=== PATIENT | female | born 1965 | race American Indian/Alaskan Native ===

== ENCOUNTER 2020-09-30 09:21 | Emergency (ER) | payer OTHER ==
[2020-09-30 10:20] VITALS: BP 166/109
--- NOTE | 2020-09-30 10:54 | Emergency Department Report ---
ED General Adult HPI - General Chief complaint: Dyspnea/Respdistress Stated complaint: LUMP IN BREAST,SOB CHEST PAIN Time Seen by Provider: 09/30/20 10:39 Source: patient Mode of arrival: Ambulatory Limitations: No Limitations - History of Present Illness Initial comments: Patient is a 54-year-old female presents emergency room with complaints of a left breast nodule that began a month ago. She states that she has noticed some swelling to her breast and noticed become painful. She states that she has a family history of breast cancer in her mother and sister. States that she has not had a mammogram in approximately 5 years. She denies any fever, nausea, vomiting, diarrhea. Has a past medical history of hypertension and states that she supposed to be taking Norvasc 10 mg daily but states she has been off of her blood pressure medication. she states she recently moved to [place] and has not yet set up PCP. she has an allergy to lisinopril. - Related Data Previous Rx's Medication Instructions Recorded Last Taken Type amLODIPine 10 mg PO DAILY #30 tab 09/30/20 Unknown Rx Allergies Allergy/AdvReac Type Severity Reaction Status Date / Time lisinopril AdvReac Angioedema Verified 09/30/20 09:27 ED Review of Systems ROS: Stated complaint: LUMP IN BREAST,SOB CHEST PAIN Other details as noted in HPI Comment: All other systems reviewed and negative ED Past Medical Hx - Medications Home Medications: Home Medications Medication Instructions Recorded Confirmed Last Taken Type amLODIPine 10 mg PO DAILY #30 tab 09/30/20 Unknown Rx ED Physical Exam - General Limitations: No Limitations General appearance: alert, in no apparent distress - Head Head exam: Present: atraumatic, normocephalic - Eye Eye exam: Present: normal appearance - ENT ENT exam: Present: mucous membranes moist - Respiratory Respiratory exam: Present: normal lung sounds bilaterally. Absent: respiratory distress, wheezes, rales, rhonchi, stridor, chest wall tenderness, accessory muscle use, decreased breath sounds, prolonged expiratory - Cardiovascular Cardiovascular Exam: Present: regular rate, normal rhythm, normal heart sounds. Absent: systolic murmur, diastolic murmur, rubs, gallop - Neurological Exam Neurological exam: Present: alert, oriented X3 - Psychiatric Psychiatric exam: Present: normal affect, normal mood - Skin Skin exam: Present: warm, dry, other (there is a small palpable 1 cm nodule present to the left breast at the 3 oclock position, no erythema, no increased warmth, no skin changes, no nipple retraction, no peau d'orange) ED Course Vital Signs 09/30/20 09:27 Temperature 98.4 F Pulse Rate 89 Respiratory 20 Rate Blood Pressure 166/109 O2 Sat by Pulse 99 Oximetry ED Medical Decision Making - Medical Decision Making Patient is a 54-year-old female presents emergency room with complaints of a left breast nodule that began a month ago. She states that she has noticed some swelling to her breast and noticed become painful. She states that she has a family history of breast cancer in her mother and sister. States that she has not had a mammogram in approximately 5 years. She denies any fever, nausea, vomiting, diarrhea. Has a past medical history of hypertension and states that she supposed to be taking Norvasc 10 mg daily but states she has been off of her blood pressure medication. she states she recently moved to [place] and has not yet set up PCP. she has an allergy to lisinopril. Vitals with elevated blood pressure, patient has been off of her medication, will refill her blood pressure medication, she is asymptomatic, the up-to-date medical literature does not recommend emergently lowering asymptomatic elevated blood pressure. On exam: there is a small palpable 1 cm nodule present to the left breast at the 3 oclock position, no erythema, no increased warmth, no skin changes, no nipple retraction, no peau d'orange. examination appears consistent with breast nodule. Stressed the importance of outpatient follow-up. Discussed return precautions. Advised patient Please take medication as prescribed. Please follow-up with a primary care doctor or BABYSITTER. You need to have an outpatient mammogram, it is very important that you follow-up given your family history. Return to emergency room for any new or symptoms. Critical care attestation.: If time is entered above; I have spent that time in minutes in the direct care of this critically ill patient, excluding procedure time. ED Disposition Clinical Impression: Breast nodule, Medication refill HTN (hypertension) Qualifiers: Hypertension type: unspecified Qualified Code(s): I10 - Essential (primary) hypertension Disposition: - TO HOME OR SELFCARE Is pt being admited?: No Does the pt Need Aspirin: No Condition: Stable Instructions: Managing Your Hypertension, Hypertension (ED) Additional Instructions: Please take medication as prescribed. Please follow-up with a primary care doct or or BABYSITTER. You need to have an outpatient mammogram, it is very important that you follow-up given your family history. Return to emergency room for any new or symptoms. Prescriptions: amLODIPine 10 mg PO DAILY #30 tab Referrals: PRIMARY CAREMD [Primary Care Provider] - 3-5 Days [facility] [Provider Group] - 3-5 Days STEPHEN CALDERON MD [Staff Physician] - 3-5 Days CHANDA CARMICHAEL MD [Staff Physician] - 3-5 Days Time of Disposition: 11:10 Print Language: TAJIK
== END 2020-09-30 11:28 | disposition home or self-care (01) ==
LOC: ED 09:21
DX: N63.0 Unspecified lump in unspecified breast (principal); I10 Essential (primary) hypertension; Z76.0 Encounter for issue of repeat prescription; Z88.8 Allergy status to other drugs, medicaments and biological substances; Z79.899 Other long term (current) drug therapy
CPT/HCPCS: 99281

== ENCOUNTER 2020-11-06 11:42 | Inpatient (IN) | payer OTHER ==
[2020-11-06] MEDS ORDERED: KETOROLAC 30 MG/1 ML INJ IV ONE (13:31)
[2020-11-06] MEDS ORDERED: SODIUM CHLORIDE 0.9% 1000 ML 1,000 ML IV ONE (13:31)
--- NOTE | 2020-11-06 13:33 | Emergency Department Report ---
ED Abdominal Pain HPI - General Chief Complaint: Abdominal Pain Stated Complaint: severe stomach,nausea vomitng Time Seen by Provider: 11/06/20 13:27 Source: patient Mode of arrival: Wheelchair Limitations: No Limitations - History of Present Illness Initial Comments: This is a 54-year-old -[place] female who presents to the emergency room with diffuse abdominal pain for 4 days. Patient states she is currently on her menstrual cycle and his pain is stable less than usual. Her last bowel movement was 4 to 5 days ago. Patient states she is unable to keep anything on her stomach. She has been vomiting for the past 2 days. Ports pain is stabbing shooting pain. She is currently taking Correctol and Gas-X with no improvement of symptoms. Denies fever, chills, chest pain, vaginal discharge, dysuria, urinary frequency, or urgency. MD Complaint: abdominal pain Onset/Timin -: days(s) Location: diffuse Severity: severe Severity scale (0 -10): 10 Quality: stabbing Consistency: constant Improves With: nothing Worsens With: nothing Associated Symptoms: nausea, vomiting. denies: diarrhea, fever, chills, dysuria, hematuria Treatments Prior to Arrival: antacids - Related Data LMP (females 10-50): this week Previous Rx's Medication Instructions Recorded Last Taken Type amLODIPine 10 mg PO DAILY #30 tab 09/30/20 Unknown Rx Allergies Allergy/AdvReac Type Severity Reaction Status Date / Time lisinopril AdvReac Angioedema Verified 09/30/20 09:27 ED Review of Systems ROS: Stated complaint: severe stomach,nausea vomitng Other details as noted in HPI Constitutional: denies: chills, fever Respiratory: denies: cough, shortness of breath, wheezing Cardiovascular: denies: chest pain, palpitations Gastrointestinal: abdominal pain, vomiting. denies: nausea, diarrhea Musculoskeletal: denies: back pain, joint swelling, arthralgia Skin: denies: rash, lesions Neurological: denies: headache, weakness, paresthesias Psychiatric: denies: anxiety, depression ED Past Medical Hx - Past Medical History Previous Medical History?: Yes Hx Hypertension: Yes - Surgical History Past Surgical History?: No - Medications Home Medications: Home Medications Medication Instructions Recorded Confirmed Last Taken Type amLODIPine 10 mg PO DAILY #30 tab 09/30/20 Unknown Rx ED Physical Exam - General Limitations: No Limitations General appearance: alert, in no apparent distress - Respiratory Respiratory exam: Present: normal lung sounds bilaterally. Absent: respiratory distress - Cardiovascular Cardiovascular Exam: Present: regular rate, normal rhythm. Absent: systolic murmur, diastolic murmur, rubs, gallop - GI/Abdominal GI/Abdominal exam: Present: soft, tenderness (RLQ, LLQ, LUQ), guarding, normal bowel sounds. Absent: distended, rebound, mass, hernia - Back Exam Back exam: Absent: CVA tenderness (R), CVA tenderness (L) - Neurological Exam Neurological exam: Present: alert, oriented X3, normal gait - Psychiatric Psychiatric exam: Present: normal affect, normal mood - Skin Skin exam: Present: warm, dry, intact, normal color. Absent: rash ED Course Vital Signs 11/06/20 12:06 Temperature 97.8 F Pulse Rate 102 H Respiratory 18 Rate Blood Pressure 140/101 [Right] O2 Sat by Pulse 99 Oximetry ED Medical Decision Making - Lab Data Result diagrams: 11/06/20 13:55 11/06/20 13:55 Lab Results 11/06/20 11/06/20 11/06/20 Range/Units 13:55 13:55 13:55 WBC 6.0 (4.5-11.0) K/mm3 RBC 5.07 H (3.65-5.03) M/mm3 Hgb 12.7 (10.1-14.3) gm/dl Hct 39.1 (30.3-42.9) % MCV 77 L (79-97) fl MCH 25 L (28-32) pg MCHC 33 (30-34) % RDW 18.0 H (13.2-15.2) % Plt Count 251 (140-440) K/mm3 Lymph % (Auto) 20.3 (13.4-35.0) % [place] % (Auto) 8.8 H (0.0-7.3) % Eos % (Auto) 0.4 (0.0-4.3) % Baso % (Auto) 0.3 (0.0-1.8) % Lymph # (Auto) 1.2 (1.2-5.4) K/mm3 [place] # (Auto) 0.5 (0.0-0.8) K/mm3 Eos # (Auto) 0.0 (0.0-0.4) K/mm3 Baso # (Auto) 0.0 (0.0-0.1) K/mm3 Seg Neutrophils % 70.2 H (40.0-70.0) % Seg Neutrophils # 4.2 (1.8-7.7) K/mm3 Sodium 138 (137-145) mmol/L Potassium 4.0 (3.6-5.0) mmol/L Chloride 99.0 (98-107) mmol/L Carbon Dioxide 26 (22-30) mmol/L Anion Gap 17 mmol/L BUN 26 H (7-17) mg/dL Creatinine 1.5 H (0.6-1.2) mg/dL Estimated GFR 44 ml/min BUN/Creatinine Ratio 17 % Glucose 105 H (65-100) mg/dL Calcium 9.8 (8.4-10.2) mg/dL Total Bilirubin 0.80 (0.1-1.2) mg/dL AST 11 (5-40) units/L ALT 9 (7-56) units/L Alkaline Phosphatase 68 (35-129) units/L Total Protein 8.6 H (6.3-8.2) g/dL Albumin 4.1 (3.9-5) g/dL Albumin/Globulin Ratio 0.9 % Lipase 22 (13-60) units/L Vital Signs 11/06/20 12:06 Temperature 97.8 F Pulse Rate 102 H Respiratory 18 Rate Blood Pressure 140/101 [Right] O2 Sat by Pulse 99 Oximetry - Radiology Data Radiology results: report reviewed CT ABDOMEN AND PELVIS WITH CONTRAST HISTORY: diffuse abdominal pain OMNI 300 100 ML COMPARISON: None TECHNIQUE: Routine abdominal and pelvic CT exam performed following intravenous contrast administration.. All CT scans at this location are performed using CT dose reduction for ALARA by means of automated exposure control. FINDINGS: CT ABDOMEN: Lung Bases: No significant abnormality. Liver: No significant abnormality. Biliary: No significant abnormality. Spleen: No significant abnormality. Unenlarged. Pancreas: No significant abnormality. Adrenals: No significant abnormality. Kidneys: No significant abnormality. Lymphatics: No lymphadenopathy. Vasculature: Atherosclerotic but nonaneurysmal abdominal aorta. Bowel/Peritoneum: There is diffuse small bowel distention with transition to nondistended bowel in the midline lower abdomen. There is no free air. There is a small amount of free fluid layering in the pelvis. CT PELVIC: : No significant abnormality. Lymphatics: No lymphadenopathy. Osseous Structures: No aggressive appearing osseous lesions. Additional Findings: None IMPRESSION: 1. Findings suggesting mild to moderate small bowel obstruction with transition point in the midline lower abdomen. No free air identified. Small amount free fluid in the pe lvis without focal well-defined fluid collection. Signer Name: Easton Jules MD Signed: 11/06/2020 3:01 PM Workstation Name: [id number] - Medical Decision Making This is a 54 y.o. female that presents with diffuse abdominal pain for 4 days. Vitals stable. Obtained labs and CT of abdomen with contrast. Given analgesics and IV fluids while in ER. CT findings of SBO into midline lower abdomen. Consulting attending Dr. Chase who suggest admission. Consulted surgery Dr. Martinez who agreed to admit to surgery. NG will be placed. Hospitalist notified. Critical Care Time: Yes Critical care time in (mins) excluding proc time.: 30 Critical care attestation.: If time is entered above; I have spent that time in minutes in the direct care of this critically ill patient, excluding procedure time. ED Disposition Clinical Impression: Small bowel obstruction Abdominal pain Qualifiers: Abdominal location: lower abdomen, unspecified Qualified Code(s): R10.30 - Lower abdominal pain, unspecified Disposition: 09 ADMITTED INPATIENT Is pt being admited?: Yes Condition: Stable Instructions: Abdominal Pain (ED) Referrals: PRIMARY CARE, [Primary Care Provider] - 3-5 Days
[2020-11-06 14:28] LABS: Albumin 4.1 g/dL (3.9-5); Calcium 9.8 mg/dL (8.4-10.2)
[2020-11-06 14:33] LABS: Basophils % (Auto) 0.3 % (0.0-1.8); Eosinophils % (Auto) 0.4 % (0.0-4.3); Hematocrit 39.1 % (30.3-42.9); Hemoglobin 12.7 gm/dl (10.1-14.3); Lymphocytes # (Auto) 1.2 K/mm3 (1.2-5.4); Lymphocytes % (Auto) 20.3 % (13.4-35.0); Mean Corpuscular HGB Conc 33 % (30-34); Mean Corpuscular Volume 77 fl (79-97); Monocytes # (Auto) 0.5 K/mm3 (0.0-0.8); Monocytes % (Auto) 8.8 % (0.0-7.3); Platelet Count 251 K/mm3 (140-440); Red Blood Count 5.07 M/mm3 (3.65-5.03)
--- NOTE | 2020-11-06 15:06 | Cat Scan Report ---
CT ABDOMEN AND PELVIS WITH CONTRAST HISTORY: diffuse abdominal pain OMNI 300 100 ML COMPARISON: None TECHNIQUE: Routine abdominal and pelvic CT exam performed following intravenous contrast administrat ion.. All CT scans at this location are performed using CT dose reduction for ALARA by means of autom ated exposure control. FINDINGS: CT ABDOMEN: Lung Bases: No significant abnormality. Liver: No significant abnormality. Biliary: No significant abnormality. Spleen: No significant abnormality. Unenlarged. Pancreas: No significant abnormality. Adrenals: No significant abnormality. Kidneys: No significant abnormality. Lymphatics: No lymphadenopathy. Vasculature: Atherosclerotic but nonaneurysmal abdominal aorta. Bowel/Peritoneum: There is diffuse small bowel distention with transition to nondistended bowel in th e midline lower abdomen. There is no free air. There is a small amount of free fluid layering in the pelvis. CT PELVIC: : No significant abnormality. Lymphatics: No lymphadenopathy. Osseous Structures: No aggressive appearing osseous lesions. Additional Findings: None IMPRESSION: 1. Findings suggesting mild to moderate small bowel obstruction with transition point in the midline lower abdomen. No free air identified. Small amount free fluid in the pelvis without focal well-defin ed fluid collection. Signer Name: Easton Jules MD Signed: 11/06/2020 3:01 PM Workstation Name: [id number]
--- NOTE | 2020-11-06 16:10 | History and Physical Report ---
History of Present Illness Date of examination: 11/06/20 Date of admission: 11/06/20 Chief complaint: Abdominal pain History of present illness: This is a 54-year-old -[place]ong[place] female who presents to the emergency room with diffuse abdominal pain for 4 days. Patient states she is currently on her menstrual cycle and his pain is stable less than usual. Her last bowel movement was 4 to 5 days ago. Patient states she is unable to keep anything on her stomach. She has been vomiting for the past 2 days. Ports pain is stabbing shooting pain. She is currently taking Correctol and Gas-X with no improvement of symptoms. Denies fever, chills, chest pain, vaginal discharge, dysuria, urinary frequency, or urgency. Medications and Allergies Allergies Allergy/AdvReac Type Severity Reaction Status Date / Time lisinopril AdvReac Angioedema Verified 09/30/20 09:27 Home Medications Medication Instructions Recorded Confirmed Last Taken Type amLODIPine 10 mg PO DAILY #30 tab 09/30/20 Unknown Rx Exam - Constitutional Vitals: Temp Pulse Resp BP Pulse Ox 97.8 F 102 H 18 140/101 99 11/06/20 12:06 11/06/20 12:06 11/06/20 12:06 11/06/20 12:06 11/06/20 12:06 Results - Labs CBC & Chem 7: 11/06/20 13:55 11/06/20 13:55 Labs: Abnormal lab results 11/06/20 11/06/20 Range/Units 13:55 13:55 RBC 5.07 H (3.65-5.03) M/mm3 MCV 77 L (79-97) fl MCH 25 L (28-32) pg RDW 18.0 H (13.2-15.2) % [place] % (Auto) 8.8 H (0.0-7.3) % Seg Neutrophils % 70.2 H (40.0-70.0) % BUN 26 H (7-17) mg/dL Creatinine 1.5 H (0.6-1.2) mg/dL Glucose 105 H (65-100) mg/dL Total Protein 8.6 H (6.3-8.2) g/dL Assessment and Plan Small bowel obstruction MARINA, likely vasomotor nephropathy CT abd/pelvis: 1. Findings suggesting mild to moderate small bowel obstruction with transition point in the midline lower abdomen. No free air identified. Small amount free fluid in the pelvis without focal well-defined fluid collection.
[2020-11-06] MEDS ORDERED: D5W/0.9% NACL 1,000 ML IV SCH (17:00)
[2020-11-06] MEDS ORDERED: ACETAMINOPHEN 325 MG TAB PO PRN (17:40)
[2020-11-06] MEDS ORDERED: hydrALAZINE 20 MG/1 ML INJ IV PRN (17:40)
[2020-11-06] MEDS: MORPHINE 2 MG/1 ML INJ IV PRN (18:42)
[2020-11-06] MEDS: ONDANSETRON 4 MG/2 ML INJ IV PRN (18:42)
[2020-11-06] MEDS: cefTRIAXone/NS 1 GM/50 ML 1 GM/50 ML BAG IV SCH (22:55)
[2020-11-06] MEDS: HEPARIN 5,000 UNIT/1 ML VIAL SUB-Q SCH (22:55)
[2020-11-07] MEDS: MORPHINE 2 MG/1 ML INJ IV PRN ×5 (00:16→18:41)
[2020-11-07 03:47] LABS: Basophils % (Auto) 0.5 % (0.0-1.8); Eosinophils # (Auto) 0.1 K/mm3 (0.0-0.4); Hematocrit 34.6 % (30.3-42.9); Hemoglobin 11.5 gm/dl (10.1-14.3); Lymphocytes % (Auto) 15.5 % (13.4-35.0); Mean Corpuscular HGB Conc 33 % (30-34); Mean Corpuscular Volume 76 fl (79-97); Monocytes # (Auto) 0.6 K/mm3 (0.0-0.8); Monocytes % (Auto) 10.1 % (0.0-7.3); Platelet Count 223 K/mm3 (140-440); Red Blood Count 4.55 M/mm3 (3.65-5.03); Red Cell Distribution Width 17.6 % (13.2-15.2)
[2020-11-07 03:56] LABS: INR 0.97 (0.87-1.13)
[2020-11-07 03:58] LABS: BUN/Creatinine Ratio 24; Blood Urea Nitrogen 26 mg/dL (7-17); Calcium 8.5 mg/dL (8.4-10.2); Hemolysis Index 0
[2020-11-07] MEDS: ONDANSETRON 4 MG/2 ML INJ IV PRN (05:42)
[2020-11-07] MEDS: HEPARIN 5,000 UNIT/1 ML VIAL SUB-Q SCH ×3 (06:27→22:06)
[2020-11-07] MEDS ORDERED: LIDOCAINE JELLY (2%) 5 ML TOPICAL ONE (09:04)
[2020-11-07] MEDS ORDERED: LIDOCAINE JELLY (2%) 5 ML TOPICAL TP ONE (09:24)
--- NOTE | 2020-11-07 10:47 | XRay Report ---
PROCEDURE: ABDOMEN FLAT AND UPRIGHT WITH SINGLE VIEW CHEST HISTORY: Abdominal distention, small bowel obstruction COMPARISON: 11/06/2020 TECHNIQUE: Supine and upright abdominal as well as single view chest radiographs obtained. FINDINGS: Lungs: The lungs are clear. The lung volumes are normal. Pleural Effusion: No evidence of a pleural effusion is seen. Pneumothorax: No evidence of pneumothorax is seen. Cardiac: The heart size is normal. Mediastinal silhouette: The mediastinal silhouette is normal. Hilar regions: The hilar regions are normal in appearance. Pulmonary vascularity: The pulmonary vascularity is normal in appearance. Trachea: The trachea is midline. Skeletal structures: The skeletal structures are normal in appearance. Support hardware: Gastric tube with tip overlying the expected location of the mid stomach. Bowel: Persistent gas distended loops of small bowel measuring up to 3.1 cm. The appearance is not si gnificantly changed from most recent CT when accounting for differences in modality. No definite free intraperitoneal gas. IMPRESSION: Persistent gas distended loops of small bowel consistent with known small bowel obstruction. Overall, the appearance is not significantly changed from recent CT. Gastric tube with tip overlying the expected location of the mid stomach. Signer Name: Brigido Pa MD Signed: 11/07/2020 10:42 AM Workstation Name: [id number]
[2020-11-07] MEDS ORDERED: HYDROmorphone 1 MG/1 ML INJ ONE (11:08)
[2020-11-07] MEDS ORDERED: HYDROmorphone 1 MG/1 ML INJ IV ONE (11:13)
--- NOTE | 2020-11-07 11:26 | Consultation ---
History of Present Illness Consult date: 11/07/20 Reason for consult: abdominal pain Chief complaint: abd pain - History of present illness History of present illness: 54-year-old female with a past surgical history of excision of ovarian cyst via Pfannenstiel incision 30 years ago who presents to the emergency room with 4 days of sudden onset lower abdominal pain. The patient states she has never had pain like this before. The pain is sharp and radiates to the mid abdomen. No alleviating or exacerbating factors at home. Pain medication here in the emergency room did help with the pain. No fevers or chills. Positive nausea and nonbilious/nonbloody emesis. Has not had a bowel movement in 4 days. States she has not eaten in the last 4 to 5 days. She is asking for something to drink. NG tube was ordered yesterday afternoon however does was not placed until 9am today. Past History Past Medical History: hypertension Past Surgical History: Other (Ovarian cystectomy via Pfannenstiel incision) Social history: no significant social history Family history: no significant family history Medications and Allergies Allergies Allergy/AdvReac Type Severity Reaction Status Date / Time lisinopril AdvReac Angioedema Verified 09/30/20 09:27 Home Medications Medication Instructions Recorded Confirmed Last Taken Type amLODIPine 10 mg PO DAILY #30 tab 09/30/20 Unknown Rx Active Meds: Active Medications Acetaminophen (Acetaminophen 325 Mg Tab) 650 mg PO Q4H PRN PRN Reason: Pain MILD(1-3)/Fever >100.5/[place] Heparin Sodium (Porcine) (Heparin 5,000 Unit/1 Ml Vial) 5,000 unit SUB-Q Q8HR SUDHAKAR Last Admin: 11/07/20 06:27 Dose: 5,000 unit Documented by: Hydralazine HCl (Hydralazine 20 Mg/1 Ml Inj) 5 mg IV Q30MIN PRN PRN Reason: Hypertension Dextrose/Sodium Chloride (D5ns) 1,000 mls @ 100 mls/hr IV DIRECT SUDHAKAR Ceftriaxone Sodium (Rocephin/Ns 1 Gm/50 Ml) 1 gm in 50 mls @ 100 mls/hr IV Q24H SUDHAKAR; Protocol Last Admin: 11/06/20 22:55 Dose: 100 mls/hr Documented by: Morphine Sulfate (Morphine 2 Mg/1 Ml Inj) 2 mg IV Q4H PRN PRN Reason: Pain, Moderate (4-6) Last Admin: 11/07/20 10:27 Dose: 2 mg Documented by: Ondansetron HCl (Ondansetron 4 Mg/2 Ml Inj) 4 mg IV Q8H PRN PRN Reason: N/V unrelieved by Reglan Last Admin: 11/07/20 05:42 Dose: 4 mg Documented by: Sodium Chloride (Sodium Chloride 0.9% 10 Ml Flush Syringe) 10 ml IV BID SUDHAKAR Last Admin: 11/07/20 09:35 Dose: 10 ml Documented by: Sodium Chloride (Sodium Chloride 0.9% 10 Ml Flush Syringe) 10 ml IV PRN PRN PRN Reason: LINE FLUSH Review of Systems All systems: negative (1 point ROS performed and negative except for that listed in HPI) Exam Vital Signs Temp Pulse Resp BP Pulse Ox 97.8 F 102 H 18 140/101 99 11/06/20 12:06 11/06/20 12:06 11/06/20 12:06 11/06/20 12:06 11/06/20 12:06 Narrative exam: Gen.: Awake, alert, oriented x3. No apparent distress ENT: NG tube in place, no output, not connected to suction appropriately. Once connected to suction immediate drainage of 800 cc of clear aspirate with semisolid green sediment. Trachea midline. No lymphadenopathy. No scleral icterus or conjunctival pallor CV: S1, S2 present Respiratory: No audible wheezes Abdomen: Soft, mildly distended, lower abdominal tenderness to palpation. Well- healed Pfannenstiel surgical scar. No rebound, rigidity, guarding Extremities: No clubbing, cyanosis, edema Results - Labs 11/07/20 03:06 11/07/20 03:06 Abnormal lab results 11/06/20 11/06/20 11/07/20 Range/Units 13:55 13:55 03:06 RBC 5.07 H (3.65-5.03) M/mm3 MCV 77 L 76 L (79-97) fl MCH 25 L 25 L (28-32) pg RDW 18.0 H 17.6 H (13.2-15.2) % [place] % (Auto) 8.8 H 10.1 H (0.0-7.3) % Lymph # (Auto) 1.0 L (1.2-5.4) K/mm3 Seg Neutrophils % 70.2 H 72.9 H (40.0-70.0) % BUN 26 H (7-17) mg/dL Creatinine 1.5 H (0.6-1.2) mg/dL Glucose 105 H (65-100) mg/dL Total Protein 8.6 H (6.3-8.2) g/dL 11/07/20 Range/Units 03:06 RBC (3.65-5.03) M/mm3 MCV (79-97) fl MCH (28-32) pg RDW (13.2-15.2) % [place] % (Auto) (0.0-7.3) % Lymph # (Auto) (1.2-5.4) K/mm3 Seg Neutrophils % (40.0-70.0) % BUN 26 H (7-17) mg/dL Creatinine (0.6-1.2) mg/dL Glucose (65-100) mg/dL Total Protein (6.3-8.2) g/dL Diabetes panel 11/06/20 11/07/20 Range/Units 13:55 03:06 Sodium 138 137 (137-145) mmol/L Potassium 4.0 3.7 (3.6-5.0) mmol/L Chloride 99.0 101.4 (98-107) mmol/L Carbon Dioxide 26 26 (22-30) mmol/L BUN 26 H 26 H (7-17) mg/dL Creatinine 1.5 H 1.1 (0.6-1.2) mg/dL Glucose 105 H 91 (65-100) mg/dL Calcium 9.8 8.5 (8.4-10.2) mg/dL AST 11 (5-40) units/L ALT 9 (7-56) units/L Alkaline Phosphatase 68 (35-129) units/L Total Protein 8.6 H (6.3-8.2) g/dL Albumin 4.1 (3.9-5) g/dL Calcium panel 11/06/20 11/07/20 Range/Units 13:55 03:06 Calcium 9.8 8.5 (8.4-10.2) mg/dL Albumin 4.1 (3.9-5) g/dL Pituitary panel 11/06/20 11/07/20 Range/Units 13:55 03:06 Sodium 138 137 (137-145) mmol/L Potassium 4.0 3.7 (3.6-5.0) mmol/L Chloride 99.0 101.4 (98-107) mmol/L Carbon Dioxide 26 26 (22-30) mmol/L BUN 26 H 26 H (7-17) mg/dL Creatinine 1.5 H 1.1 (0.6-1.2) mg/dL Glucose 105 H 91 (65-100) mg/dL Calcium 9.8 8.5 (8.4-10.2) mg/dL Adrenal panel 11/06/20 11/07/20 Range/Units 13:55 03:06 Sodium 138 137 (137-145) mmol/L Potassium 4.0 3.7 (3.6-5.0) mmol/L Chloride 99.0 101.4 (98-107) mmol/L Carbon Dioxide 26 26 (22-30) mmol/L BUN 26 H 26 H (7-17) mg/dL Creatinine 1.5 H 1.1 (0.6-1.2) mg/dL Glucose 105 H 91 (65-100) mg/dL Calcium 9.8 8.5 (8.4-10.2) mg/dL Total Bilirubin 0.80 (0.1-1.2) mg/dL AST 11 (5-40) units/L ALT 9 (7-56) units/L Alkaline Phosphatase 68 (35-129) units/L Total Protein 8.6 H (6.3-8.2) g/dL Albumin 4.1 (3.9-5) g/dL - Imaging Abdominal x-ray: report reviewed, image reviewed CT scan - abdomen: report reviewed, image reviewed CT scan - pelvis: report reviewed, image reviewed Assessment and Plan 54-year-old female with small bowel obstruction likely secondary to adhesions Pt overall stable. WBC normal. Plan: 1. strict NPO 2. IVF 3. IV pain control 4. prn nausea control 5. NGT to LIWS - was not placed til this am and not connected to suction appropriately. Obs series performed immediately after placement of NGT and no change from CT likely due to fact that patient was not decompressed with NGT overnight. 6. DVT ppx 7. Repeat obs series in am 8. Possible need for surgery discussed with patient if SBO does not resolved with conservative measures as above. She understands. Thank you for this consultation. Please call with any questions or concerns. Evaluation and treatment of this patient was during the time of the national and state emergency arising from COVID19 coronavirus pandemic. Treatment and procedures performed meet the current and available best practice and guidelines for patient during the COVID pandemic.
[2020-11-07] MEDS: D5W/0.9% NACL 1,000 ML IV SCH (12:02)
[2020-11-07] MEDS: PANTOPRAZOLE 40 MG INJ IV SCH (12:02)
--- NOTE | 2020-11-07 14:11 | Progress Note ---
Assessment and Plan Small bowel obstruction MARINA, likely vasomotor nephropathy CT abd/pelvis: 1. Findings suggesting mild to moderate small bowel obstruction with transition point in the midline lower abdomen. No free air identified. Small amount free fluid in the pelvis without focal well-defined fluid collection. Daily clinical course; 11/07/20: Continue NG suction, continue IV fluid, repeat labs Subjective Date of service: 11/07/20 Objective - Constitutional Vitals: Vital Signs - 12hr 11/07/20 11/07/20 02:30 03:00 Pulse Rate 90 89 Respiratory 15 30 H Rate Blood Pressure 132/92 157/103 O2 Sat by Pulse 95 99 Oximetry - Labs CBC & Chem 7: 11/07/20 03:06 11/07/20 03:06 Labs: Abnormal lab results 11/06/20 11/06/20 11/07/20 Range/Units 13:55 13:55 03:06 RBC 5.07 H (3.65-5.03) M/mm3 MCV 77 L 76 L (79-97) fl MCH 25 L 25 L (28-32) pg RDW 18.0 H 17.6 H (13.2-15.2) % [place] % (Auto) 8.8 H 10.1 H (0.0-7.3) % Lymph # (Auto) 1.0 L (1.2-5.4) K/mm3 Seg Neutrophils % 70.2 H 72.9 H (40.0-70.0) % BUN 26 H (7-17) mg/dL Creatinine 1.5 H (0.6-1.2) mg/dL Glucose 105 H (65-100) mg/dL Total Protein 8.6 H (6.3-8.2) g/dL 11/07/20 Range/Units 03:06 RBC (3.65-5.03) M/mm3 MCV (79-97) fl MCH (28-32) pg RDW (13.2-15.2) % [place] % (Auto) (0.0-7.3) % Lymph # (Auto) (1.2-5.4) K/mm3 Seg Neutrophils % (40.0-70.0) % BUN 26 H (7-17) mg/dL Creatinine (0.6-1.2) mg/dL Glucose (65-100) mg/dL Total Protein (6.3-8.2) g/dL
[2020-11-07] MEDS: HYDROmorphone 1 MG/1 ML INJ IV PRN ×2 (15:05→22:19)
[2020-11-07] MEDS: cefTRIAXone/NS 1 GM/50 ML 1 GM/50 ML BAG IV SCH (22:04)
[2020-11-08] MEDS: MORPHINE 2 MG/1 ML INJ IV PRN ×3 (00:44→15:57)
[2020-11-08] MEDS: D5W/0.9% NACL 1,000 ML IV SCH (01:44)
[2020-11-08] MEDS: HYDROmorphone 1 MG/1 ML INJ IV PRN ×3 (01:44→21:07)
[2020-11-08] MEDS: HEPARIN 5,000 UNIT/1 ML VIAL SUB-Q SCH ×3 (06:16→22:44)
[2020-11-08 06:30] LABS: BUN/Creatinine Ratio 27; Blood Urea Nitrogen 24 mg/dL (7-17); Calcium 8.7 mg/dL (8.4-10.2); Hemolysis Index 0
--- NOTE | 2020-11-08 09:29 | XRay Report ---
ABDOMEN 3 VIEW(S) INDICATION / CLINICAL INFORMATION: sbo. COMPARISON: Recent CT and radiographs. FINDINGS: TUBES / LINES: NG tube in satisfactory position. BOWEL GAS PATTERN: Dilated small bowel with air-fluid levels again noted. There is a paucity of colon ic gas. FREE AIR / EXTRALUMINAL GAS: None seen. ADDITIONAL FINDINGS: Lungs are clear. IMPRESSION: 1. Persistent small bowel obstruction. Signer Name: Monty Bonilla MD Signed: 11/08/2020 9:24 AM Workstation Name: [id number]
[2020-11-08] MEDS ORDERED: POTASSIUM CHLORIDE ER 20 MEQ TAB PO ONE (10:36)
[2020-11-08] MEDS: PANTOPRAZOLE 40 MG INJ IV SCH (10:57)
[2020-11-08] MEDS: POTASSIUM CHLORIDE 10 MEQ 10 MEQ/100 ML BAG IV SCH (12:20)
--- NOTE | 2020-11-08 13:18 | Progress Note ---
Assessment and Plan 54-year-old female with small bowel obstruction likely secondary to adhesions Pt overall stable, feeling better. However, NGT output is very high and persistent SBO on Obs series today. NG tube output has not been recorded in [employer] however there are 2 full canisters at patient's bedside. Plan: 1. strict NPO 2. IVF 3. IV pain control 4. prn nausea control 5. NGT to LIWS 6. DVT ppx 7. Recommend OR for dx lap, possible exlap. Discussed with patient and questions answered. Possible need for bowel resection discussed. Will proceed to OR today. Consent obtained. Thank you. Please call with any questions or concerns. Evaluation and treatment of this patient was during the time of the national and state emergency arising from COVID19 coronavirus pandemic. Treatment and procedures performed meet the current and available best practice and guidelines for patient during the COVID pandemic. Subjective Date of service: 11/08/20 Narrative: Patient seen and examined. No acute complaints. States she feels hungry. Her abdominal pain is much better controlled today. No fevers or chills. No bowel movement or flatus. Objective Vital Signs - 12hr 11/08/20 11/08/20 11/08/20 01:44 02:39 04:05 Temperature 98.8 F Pulse Rate 96 H Respiratory 18 18 Rate Blood Pressure 133/100 Blood Pressure [Right] O2 Sat by Pulse 99 99 Oximetry 11/08/20 11/08/20 11/08/20 04:34 06:18 08:32 Temperature 98.7 F Pulse Rate 94 H 82 Respiratory 20 18 Rate Blood Pressure 118/80 Blood Pressure 138/95 [Right] O2 Sat by Pulse 96 96 Oximetry 11/08/20 11:48 Temperature Pulse Rate Respiratory Rate Blood Pressure 120/78 Blood Pressure [Right] O2 Sat by Pulse Oximetry - General physical appearance Narrative Exam: Gen.: Awake, alert, oriented x3. No apparent distress ENT: NG tube with bilious output. Trachea midline. No lymphadenopathy. No scleral icterus or conjunctival pallor CV: S1, S2 present Respiratory: No audible wheezes Abdomen: Soft, nondistended, nontender. No rebound, rigidity, guarding Extremities: No clubbing, cyanosis, edema - Labs 11/07/20 03:06 11/08/20 04:35 Diabetes panel 11/08/20 Range/Units 04:35 Sodium 137 (137-145) mmol/L Potassium 3.3 L (3.6-5.0) mmol/L Chloride 96.3 L (98-107) mmol/L Carbon Dioxide 28 (22-30) mmol/L BUN 24 H (7-17) mg/dL Creatinine 0.9 (0.6-1.2) mg/dL Glucose 108 H (65-100) mg/dL Calcium 8.7 (8.4-10.2) mg/dL Calcium panel 11/08/20 Range/Units 04:35 Calcium 8.7 (8.4-10.2) mg/dL Pituitary panel 11/08/20 Range/Units 04:35 Sodium 137 (137-145) mmol/L Potassium 3.3 L (3.6-5.0) mmol/L Chloride 96.3 L (98-107) mmol/L Carbon Dioxide 28 (22-30) mmol/L BUN 24 H (7-17) mg/dL Creatinine 0.9 (0.6-1.2) mg/dL Glucose 108 H (65-100) mg/dL Calcium 8.7 (8.4-10.2) mg/dL Adrenal panel 11/08/20 Range/Units 04:35 Sodium 137 (137-145) mmol/L Potassium 3.3 L (3.6-5.0) mmol/L Chloride 96.3 L (98-107) mmol/L Carbon Dioxide 28 (22-30) mmol/L BUN 24 H (7-17) mg/dL Creatinine 0.9 (0.6-1.2) mg/dL Glucose 108 H (65-100) mg/dL Calcium 8.7 (8.4-10.2) mg/dL
--- NOTE | 2020-11-08 14:45 | Anesthesia Day of Surgery ---
Anesthesia Day of Surgery - Day of Surgery Patient Examined: Yes Patient H&P Reviewed: Yes Patient is NPO: Yes
--- NOTE | 2020-11-08 14:45 | Anesthesia Consultation ---
Anesthesia Consult and Med Hx Date of service: 11/08/20 - Airway Anesthetic Teeth Evaluation: Edentulous ROM Head & Neck: Adequate Mental/Hyoid Distance: Adequate Mallampati Class: Class II Intubation Access Assessment: Probably Good - Pre-Operative Health Status ASA Pre-Surgery Classification: ASA3 Proposed Anesthetic Plan: General - Pulmonary Hx Smoking: Yes (1/2 pack/day x 30 years) - Cardiovascular System Hx Hypertension: Yes - Gastrointestinal Hx Gastroesophageal Reflux Disease: No (small bowel obstruction) - Other Systems Hx Substance Use: Yes (marijuana, cocaine)
[2020-11-08] MEDS ORDERED: LIDOCAINE (1%) 10 MG/1 ML VIAL 20 ML MDV ONE (15:11)
[2020-11-08] MEDS ORDERED: BUPIVACAINE/PF (0.5%) 5 MG/1 ML 30 ML VIAL INFILTRATI ONE ×3 (15:11→18:10)
--- NOTE | 2020-11-08 15:18 | Progress Note ---
Assessment and Plan Small bowel obstruction MARINA, likely vasomotor nephropathy CT abd/pelvis: 1. Findings suggesting mild to moderate small bowel obstruction with transition point in the midline lower abdomen. No free air identified. Small amount free fluid in the pelvis without focal well-defined fluid collection. Daily clinical course; 11/07/20: Continue NG suction, continue IV fluid, repeat labs 11/08/20; patient remains symptomatic despite of appropriate medical management. Plan for diagnostic laparoscopy today, Subjective Date of service: 11/08/20 Objective - Constitutional Vitals: Vital Signs - 12hr 11/08/20 11/08/20 11/08/20 04:05 04:34 06:18 Temperature 98.8 F Pulse Rate 96 H 94 H Respiratory 18 20 Rate Blood Pressure 133/100 Blood Pressure 138/95 [Right] O2 Sat by Pulse 99 96 Oximetry 11/08/20 11/08/20 08:32 11:48 Temperature 98.7 F Pulse Rate 82 Respiratory 18 Rate Blood Pressure 118/80 120/78 Blood Pressure [Right] O2 Sat by Pulse 96 Oximetry - Labs CBC & Chem 7: 11/07/20 03:06 11/08/20 04:35 Labs: Abnormal lab results 11/08/20 Range/Units 04:35 Potassium 3.3 L (3.6-5.0) mmol/L Chloride 96.3 L (98-107) mmol/L BUN 24 H (7-17) mg/dL Glucose 108 H (65-100) mg/dL
[2020-11-08] MEDS ORDERED: propofoL 200 MG/20 ML VIAL IV ONE (17:23)
[2020-11-08] MEDS ORDERED: SUCCINYLCHOLINE CHLORIDE 200 MG/10 ML INJ MDV ONE (17:23)
[2020-11-08] MEDS ORDERED: fentaNYL 100 MCG/2 ML INJ ONE (17:23)
[2020-11-08] MEDS ORDERED: LIDOCAINE PF 100 MG/5 ML (CARDIAC SYRINGE) IV ONE (17:23)
[2020-11-08] MEDS ORDERED: ONDANSETRON 4 MG/2 ML INJ ONE (17:29)
[2020-11-08] MEDS ORDERED: ROCURONIUM 50 MG/5 ML INJ IV ONE (17:29)
[2020-11-08] MEDS ORDERED: dexAMETHasone 20 MG/5 ML VIAL ONE (17:29)
[2020-11-08] MEDS ORDERED: MIDAZOLAM 2 MG/2 ML INJ ONE (17:43)
[2020-11-08] MEDS ORDERED: KETAMINE/STERILE WATER 50 MG/ML SYRINGE ONE (17:43)
[2020-11-08] MEDS ORDERED: LIDOCAINE (1%) 10 MG/1 ML VIAL 20 ML MDV INFILTRATI ONE ×2 (18:10)
[2020-11-08] MEDS ORDERED: SODIUM CHLORIDE 0.9% IRR 1,500 ML BOTTLE IR ONE ×2 (18:10)
[2020-11-08] MEDS ORDERED: WATER FOR IRRIG STERILE 1,500 ML BOTTLE IR ONE (18:10)
[2020-11-08] MEDS ORDERED: PHENYLEPHRINE/NS 1,000 MCG/10 ML SYRINGE (OR USE) IV ONE (18:53)
[2020-11-08] MEDS ORDERED: HYDROmorphone 1 MG/1 ML INJ IV PRN (18:54)
[2020-11-08] MEDS ORDERED: ONDANSETRON 4 MG/2 ML INJ IV PRN (18:54)
[2020-11-08] MEDS ORDERED: SODIUM CHLORIDE 0.9% IRRIG SOLN 2000 ML IR ONE (19:16)
--- NOTE | 2020-11-08 19:32 | Post Operative Note ---
Pre-op diagnosis: small bowel obstruction Post-op diagnosis: same (high grade small bowel obstruction) Findings: 1. Dense adhesions from omentum to abdominal wall in mid and lower abdomen, small bowel to abdominal wall lower abdomen and pelvis 2. High grade distal small bowel obstruction resulting from adhesions in pelvis involving uterus Procedure: diagnotis laparoscopy, lysis of adhesions Anesthesia: GETA, local Surgeon: DEMETRA DIEGO Emu Farmer: CHRISTIANO LOCK Estimated blood loss: minimal Pathology: none Condition: stable Disposition: PACU
[2020-11-08] MEDS ORDERED: NEOSTIGMINE 10MG/10 ML INJ MDV ONE (19:36)
[2020-11-08] MEDS ORDERED: GLYCOPYRROLATE 0.4 MG/2 ML INJ ONE (19:36)
--- NOTE | 2020-11-08 19:41 | Operative Report ---
Operative Report Operative Report: Date: 11/08/20 19:30 Pre-op diagnosis: small bowel obstruction Post-op diagnosis: high grade small bowel obstruction, internal hernia Findings: 1. Dense adhesions from omentum to abdominal wall in mid and lower abdomen, small bowel to abdominal wall lower abdomen and pelvis 2. High grade distal small bowel obstruction resulting from adhesions in pelvis involving uterus, internal hernia Procedure: diagnotic laparoscopy, lysis of adhesions Anesthesia: ROMEO, local Surgeon: DEMETRA DIEGO Carpet Installer Helper: CHRISTIANO LOCK Estimated blood loss: minimal Pathology: none Condition: stable Disposition: PACU HPI and indication: Patient is a 55-year-old female with a past surgical history of open ovarian cystectomy who presented to the emergency room with complaints of 4 days of severe abdominal pain, nausea and vomiting. She was found to have small bowel obstruction. The patient was managed with an NG tube, n.p.o., IV fluids. However she did not improve clinically or radiographically and continued to have very high NG tube outputs. It was therefore recommended that she undergo diagnostic laparoscopy, possible exploratory laparotomy. All risks, benefits, alternatives to surgery were discussed with the patient questions answered. Consent was obtained. Procedure in detail: Patient was identified in the hospital bed, taken back to the operating room, placed on the operating room table in supine position. After anesthesia was induced, I placed a Mora catheter using sterile technique. The NG tube was removed and replaced with a larger Polish NG tube by anesthesia. The abdomen was then prepped and draped in the usual sterile fashion a timeout performed. Local anesthetic was infiltrated at all skin incision sites. A shirley incision was made in the left upper quadrant at Wood's point through which a Veress needle was inserted. The Veress needle position was confirmed using the saline drop test and the abdomen insufflated to 15 mmHg without incident. A left upper quadrant incision was then made through which a 5 mm Optiview trocar was placed. The abdomen was inspected and there was no underlying injury to any of the abdominal structures. The Veress needle was identified and removed. The abdomen was inspected and there were dense adhesions from the omentum to the anterior abdominal wall in the mid and lower abdomen. It also appeared there were small bowel adhesions to the anterior abdominal wall in the lower abdomen and pelvis area. An additional left lower quadrant 5 mm trocar was placed under direct visualization. I then proceeded to performing lysis of adhesions using a LigaSure. Once enough adhesions were lysed, a 5 mm suprapubic trocar was placed under direct visualization. We then continued lysis of adhesions until we encountered a loop of small bowel adhered to the anterior abdominal wall in the lower midline. The adhesions were very dense and a meticulous lysis of adhesions was performed using EndoShears. Once this loop of small bowel was released, the bowel was ran from the terminal ileum, proximally. An additional right upper quadrant 5 mm addictions counselor assistant trocar was placed under direct visualization. The distal small bowel was decompressed and was ran for short distance until we ran into another dense adhesion. It appeared that the small bowel was traveling into the pelvis in between the right ovary and the uterus. This was almost like an internal hernia created by adhesions. The bowel proximal to this window was extremely dilated. Using blunt dissection a grasper was able to be inserted in between the small bowel and the uterus and the opening spread which allowed for the introduction of the second grasper. This area was gently stretched and the adhesions bluntly dissected which resulted in a immediate release of the small intestine. There was at least 20 cm of distended and fluid-filled small bowel contained within this internal hernia. I then proceeded to run the remainder of the bowel to the ligament of Treitz. There were adhesions from the omentum to the mesentery of the bowel and to the left lateral abdominal wall which were dissected using the LigaSure. The omentum was retracted above the transverse colon and the ligament of Treitz was identified. The bowel was then ran again from the ligament of Treitz to the terminal ileum. The majority of the small bowel was distended and fluid-filled. The distal small bowel was decompressed. A tiny serosal tear was identified in the distal jejunum but no full-thickness injury. The remainder of the bowel appeared viable, healthy. No other potential causes of bowel obstruction were identified. At this point the abdomen was desufflated and all of the ports were removed under direct visualization. All skin incisions were once again infiltrated with local anesthetic. The skin incisions were closed with 4-0 Monocryl subcuticular stitches and skin glue. The patient tolerated the procedure well. At the end of the case all sponge, instrument, sharp counts were correct x2. The patient was awoken from anesthesia, Mora catheter removed, and she was taken to PACU in stable condition
[2020-11-08] MEDS: cefTRIAXone/NS 1 GM/50 ML 1 GM/50 ML BAG IV SCH (22:41)
[2020-11-09] MEDS: HYDROmorphone 1 MG/1 ML INJ IV PRN ×4 (01:54→16:15)
[2020-11-09] MEDS: POTASSIUM CHLORIDE 10 MEQ 10 MEQ/100 ML BAG IV SCH ×7 (03:56→23:10)
[2020-11-09] MEDS: D5W/0.9% NACL 1,000 ML IV SCH (03:56)
[2020-11-09 06:31] LABS: Basophils % (Auto) 0.2 % (0.0-1.8); Hematocrit 29.7 % (30.3-42.9); Hemoglobin 9.6 gm/dl (10.1-14.3); Lymphocytes # (Auto) 0.7 K/mm3 (1.2-5.4); Lymphocytes % (Auto) 13.1 % (13.4-35.0); Mean Corpuscular HGB Conc 32 % (30-34); Mean Corpuscular Volume 77 fl (79-97); Monocytes # (Auto) 0.3 K/mm3 (0.0-0.8); Monocytes % (Auto) 6.6 % (0.0-7.3); Platelet Count 178 K/mm3 (140-440); Red Blood Count 3.88 M/mm3 (3.65-5.03); Red Cell Distribution Width 17.6 % (13.2-15.2)
[2020-11-09] MEDS: HEPARIN 5,000 UNIT/1 ML VIAL SUB-Q SCH ×3 (06:51→21:04)
[2020-11-09 07:06] LABS: BUN/Creatinine Ratio 26; Blood Urea Nitrogen 21 mg/dL (7-17); Calcium 8.2 mg/dL (8.4-10.2); Hemolysis Index 0
[2020-11-09] MEDS: PANTOPRAZOLE 40 MG INJ IV SCH (09:21)
--- NOTE | 2020-11-09 12:44 | Progress Note ---
Assessment and Plan 55 yo F s/p dx lap, YANIRA, POD 1 Plan: 1. NGT to LIWS - likely dc in am and start on clear liquids 2. gentle IVF 3. prn pain control 4. DVT ppx 5. PPI 6. OOB/ambulate 7. ok to have ice chips and sips of water Thank you, please call with questions. Subjective Date of service: 11/09/20 Narrative: Pt seen and examined. Feels much better. +Flatus and BMx3. Feeling hungry. Has been ambulating to the bathroom. No abdominal pain. Objective Vital Signs - 12hr 11/09/20 11/09/20 11/09/20 00:46 01:54 04:00 Temperature Pulse Rate Respiratory 18 17 Rate Respiratory 17 Rate [Abd] Blood Pressure Blood Pressure [Right] O2 Sat by Pulse 98 Oximetry 11/09/20 11/09/20 11/09/20 04:58 06:54 07:24 Temperature 97.8 F Pulse Rate 122 H Respiratory 18 17 17 Rate Respiratory Rate [Abd] Blood Pressure Blood Pressure 118/87 [Right] O2 Sat by Pulse 100 Oximetry 11/09/20 11/09/20 07:39 11:27 Temperature 98.0 F 98.2 F Pulse Rate 84 88 Respiratory 18 18 Rate Respiratory Rate [Abd] Blood Pressure 141/89 165/111 Blood Pressure [Right] O2 Sat by Pulse 98 96 Oximetry - General physical appearance Narrative Exam: Gen: AAOx3. NAD ENT: NGT with dark gastric output CV: S1, S2+ Resp: even and unlabored Abd: soft, NT, ND. Incisions c/d/i Ext: no c/c/e - Labs 11/09/20 04:13 11/09/20 04:13 Diabetes panel 11/09/20 Range/Units 04:13 Sodium 138 (137-145) mmol/L Potassium 3.2 L (3.6-5.0) mmol/L Chloride 100.8 (98-107) mmol/L Carbon Dioxide 24 (22-30) mmol/L BUN 21 H (7-17) mg/dL Creatinine 0.8 (0.6-1.2) mg/dL Glucose 224 H (65-100) mg/dL Calcium 8.2 L (8.4-10.2) mg/dL Calcium panel 11/09/20 Range/Units 04:13 Calcium 8.2 L (8.4-10.2) mg/dL Pituitary panel 11/09/20 Range/Units 04:13 Sodium 138 (137-145) mmol/L Potassium 3.2 L (3.6-5.0) mmol/L Chloride 100.8 (98-107) mmol/L Carbon Dioxide 24 (22-30) mmol/L BUN 21 H (7-17) mg/dL Creatinine 0.8 (0.6-1.2) mg/dL Glucose 224 H (65-100) mg/dL Calcium 8.2 L (8.4-10.2) mg/dL Adrenal panel 11/09/20 Range/Units 04:13 Sodium 138 (137-145) mmol/L Potassium 3.2 L (3.6-5.0) mmol/L Chloride 100.8 (98-107) mmol/L Carbon Dioxide 24 (22-30) mmol/L BUN 21 H (7-17) mg/dL Creatinine 0.8 (0.6-1.2) mg/dL Glucose 224 H (65-100) mg/dL Calcium 8.2 L (8.4-10.2) mg/dL
--- NOTE | 2020-11-09 16:48 | Progress Note ---
Assessment and Plan Small bowel obstruction MARINA, likely vasomotor nephropathy CT abd/pelvis: 1. Findings suggesting mild to moderate small bowel obstruction with transition point in the midline lower abdomen. No free air identified. Small amount free fluid in the pelvis without focal well-defined fluid collection. Daily clinical course; 11/07/20: Continue NG suction, continue IV fluid, repeat labs 11/08/20; patient remains symptomatic despite of appropriate medical management. Plan for diagnostic laparoscopy today, 11/09/20: s/p diagnotis laparoscopy, lysis of adhesions yesterday. Patient tolerated the procedure well. Start on ice chips today, plan to start on clear liquid diet tomorrow. If clinically stable patient might be discharged home to [place] Subjective Date of service: 11/09/20 Objective - Constitutional Vitals: Vital Signs - 12hr 11/09/20 11/09/20 11/09/20 04:58 06:54 07:24 Temperature 97.8 F Pulse Rate 122 H Respiratory 18 17 17 Rate Blood Pressure Blood Pressure 118/87 [Right] O2 Sat by Pulse 100 Oximetry 11/09/20 11/09/20 11/09/20 07:39 11:27 12:44 Temperature 98.0 F 98.2 F Pulse Rate 84 88 Respiratory 18 18 18 Rate Blood Pressure 141/89 165/111 Blood Pressure [Right] O2 Sat by Pulse 98 96 96 Oximetry - Labs CBC & Chem 7: 11/09/20 04:13 11/11/20 08:05 Labs: Abnormal lab results 11/09/20 11/09/20 Range/Units 04:13 04:13 Hgb 9.6 L (10.1-14.3) gm/dl Hct 29.7 L (30.3-42.9) % MCV 77 L (79-97) fl MCH 25 L (28-32) pg RDW 17.6 H (13.2-15.2) % Lymph % (Auto) 13.1 L (13.4-35.0) % Lymph # (Auto) 0.7 L (1.2-5.4) K/mm3 Seg Neutrophils % 80.1 H (40.0-70.0) % Potassium 3.2 L (3.6-5.0) mmol/L BUN 21 H (7-17) mg/dL Glucose 224 H (65-100) mg/dL Calcium 8.2 L (8.4-10.2) mg/dL
[2020-11-09] MEDS ORDERED: cloNIDine TTS 0.2 MG/24 HR PATCH TD SCH (18:00)
[2020-11-09] MEDS: MORPHINE 2 MG/1 ML INJ IV PRN (20:46)
[2020-11-09] MEDS: PHENOL 1.4% 177 ML BOTTLE MM PRN (20:46)
[2020-11-09] MEDS: ONDANSETRON 4 MG/2 ML INJ IV PRN (21:00)
[2020-11-09] MEDS: cefTRIAXone/NS 1 GM/50 ML 1 GM/50 ML BAG IV SCH (21:07)
[2020-11-10] MEDS: HYDROmorphone 1 MG/1 ML INJ IV PRN (01:54)
[2020-11-10 05:42] LABS: BUN/Creatinine Ratio 10; Blood Urea Nitrogen 8 mg/dL (7-17); Calcium 7.9 mg/dL (8.4-10.2); Hemolysis Index 3
[2020-11-10] MEDS: HEPARIN 5,000 UNIT/1 ML VIAL SUB-Q SCH ×3 (06:20→21:41)
[2020-11-10] MEDS: PHENOL 1.4% 177 ML BOTTLE MM PRN (06:27)
--- NOTE | 2020-11-10 08:28 | Progress Note ---
Assessment and Plan 55 yo F s/p dx lap, YANIRA, POD 2 Plan: 1. dc NGT 2. start CLD -> adv to FLD in am tomorrow if tolerates clears today 3. gentle IVF 4. replace lytes as needed 5. OOB/ambulate 6. DVT ppx 7. IS/pulm toilet 8. prn pain control - add PO [place] 9. OK to dc tomorrow if tolerating liquid diet. Pt instructed to remain on FLD for 4-5 days after dc and then slowly advance to soft diet. Pt instructed to follow up in surgery clinic in 2 weeks. Thank you, please call with questions. Subjective Date of service: 11/10/20 Narrative: Pt seen and examined. No acute complaints. Feels hungry. No f/c. NGT output minimal. Pt reports passing flatus. Objective Vital Signs - 12hr 11/09/20 11/09/20 11/09/20 20:29 20:46 23:32 Temperature 98.2 F Pulse Rate 78 Respiratory 18 17 18 Rate Respiratory Rate [Abd] Blood Pressure 140/83 O2 Sat by Pulse 97 99 Oximetry 11/10/20 11/10/20 11/10/20 01:54 02:24 03:35 Temperature 98.5 F Pulse Rate Respiratory 17 18 18 Rate Respiratory Rate [Abd] Blood Pressure 139/77 O2 Sat by Pulse Oximetry 11/10/20 11/10/20 04:00 04:25 Temperature Pulse Rate 84 Respiratory Rate Respiratory 17 Rate [Abd] Blood Pressure O2 Sat by Pulse 95 Oximetry - General physical appearance Narrative Exam: Gen: AAox3. NAD ENT: NGT with brown gastric output, minimal CV: s1, S2+ Resp: even and unlabored Abd: soft, NT, ND. Incisions c/d/i Ext: no c/c/e - Labs 11/09/20 04:13 11/10/20 04:47 Diabetes panel 11/10/20 Range/Units 04:47 Sodium 137 (137-145) mmol/L Potassium 3.5 L (3.6-5.0) mmol/L Chloride 104.3 (98-107) mmol/L Carbon Dioxide 27 (22-30) mmol/L BUN 8 (7-17) mg/dL Creatinine 0.8 (0.6-1.2) mg/dL Glucose 89 (65-100) mg/dL Calcium 7.9 L (8.4-10.2) mg/dL Calcium panel 11/10/20 Range/Units 04:47 Calcium 7.9 L (8.4-10.2) mg/dL Pituitary panel 11/10/20 Range/Units 04:47 Sodium 137 (137-145) mmol/L Potassium 3.5 L (3.6-5.0) mmol/L Chloride 104.3 (98-107) mmol/L Carbon Dioxide 27 (22-30) mmol/L BUN 8 (7-17) mg/dL Creatinine 0.8 (0.6-1.2) mg/dL Glucose 89 (65-100) mg/dL Calcium 7.9 L (8.4-10.2) mg/dL Adrenal panel 11/10/20 Range/Units 04:47 Sodium 137 (137-145) mmol/L Potassium 3.5 L (3.6-5.0) mmol/L Chloride 104.3 (98-107) mmol/L Carbon Dioxide 27 (22-30) mmol/L BUN 8 (7-17) mg/dL Creatinine 0.8 (0.6-1.2) mg/dL Glucose 89 (65-100) mg/dL Calcium 7.9 L (8.4-10.2) mg/dL
[2020-11-10] MEDS ORDERED: HYDROcodone/ACETAMINOPHEN 5-325 MG TAB PO PRN (09:00)
[2020-11-10] MEDS: D5W/0.45% NACL/KCL 20 MEQ 20 MEQ/1,000 ML BAG IV SCH (09:08)
[2020-11-10] MEDS: PANTOPRAZOLE 40 MG INJ IV SCH (09:08)
[2020-11-10] MEDS: MORPHINE 2 MG/1 ML INJ IV PRN ×2 (09:09→18:17)
[2020-11-10] MEDS ORDERED: POTASSIUM CHLORIDE ER 20 MEQ TAB PO ONE (14:26)
--- NOTE | 2020-11-10 14:26 | Progress Note ---
Assessment and Plan Small bowel obstruction MARINA, likely vasomotor nephropathy CT abd/pelvis: 1. Findings suggesting mild to moderate small bowel obstruction with transition point in the midline lower abdomen. No free air identified. Small amount free fluid in the pelvis without focal well-defined fluid collection. Daily clinical course; 11/07/20: Continue NG suction, continue IV fluid, repeat labs 11/08/20; patient remains symptomatic despite of appropriate medical management. Plan for diagnostic laparoscopy today, 11/09/20: s/p diagnotis laparoscopy, lysis of adhesions yesterday. Patient tolerated the procedure well. Start on ice chips today, plan to start on clear liquid diet tomorrow. If clinically stable patient might be discharged home so on 11/10/20: start clear liquid diet today, ordered for PT eval, possible d/c tomorrow Subjective Date of service: 11/10/20 Objective - Constitutional Vitals: Vital Signs - 12hr 11/10/20 11/10/20 11/10/20 03:35 04:00 04:25 Temperature 98.5 F Pulse Rate 84 Respiratory 18 Rate Respiratory 17 Rate [Abd] Blood Pressure 139/77 O2 Sat by Pulse 95 Oximetry 11/10/20 11:20 Temperature Pulse Rate Respiratory 18 Rate Respiratory Rate [Abd] Blood Pressure O2 Sat by Pulse 97 Oximetry - Labs CBC & Chem 7: 11/09/20 04:13 11/11/20 08:05 Labs: Abnormal lab results 11/10/20 Range/Units 04:47 Potassium 3.5 L (3.6-5.0) mmol/L Calcium 7.9 L (8.4-10.2) mg/dL
[2020-11-10] MEDS: cefTRIAXone/NS 1 GM/50 ML 1 GM/50 ML BAG IV SCH (21:53)
[2020-11-11] MEDS: MORPHINE 2 MG/1 ML INJ IV PRN ×2 (03:58→10:16)
[2020-11-11] MEDS: HEPARIN 5,000 UNIT/1 ML VIAL SUB-Q SCH ×2 (06:52→14:14)
[2020-11-11] MEDS: D5W/0.45% NACL/KCL 20 MEQ 20 MEQ/1,000 ML BAG IV SCH (06:56)
[2020-11-11 08:48] LABS: BUN/Creatinine Ratio 5; Blood Urea Nitrogen 4 mg/dL (7-17); Calcium 8.6 mg/dL (8.4-10.2); Hemolysis Index 1
[2020-11-11] MEDS: PANTOPRAZOLE 40 MG INJ IV SCH (10:17)
[2020-11-11 16:22] VITALS: BP 135/88
--- NOTE | 2020-11-11 17:24 | Discharge Summary ---
Providers - Providers Date of Admission: 11/07/20 14:10 Date of discharge: 11/11/20 Attending physician: SULLY CANCHOLA 11/06/20 16:15 Consult to Physician [CONS] Routine Comment: Consulting Provider: DEMETRA DIEGO Physician Instructions: Reason For Exam: SBO 11/10/20 14:26 Physical Therapy Evaluation and Treat [CONS] Routine Comment: Reason For Exam: Debility Primary care physician: GAS BLENDER Hospitalization Condition: Stable Disposition: 01 HOME / SELF CARE / HOMELESS Final Discharge Diagnosis (Prints w/discharge instructions): Small bowel obstruction. MARINA, likely vasomotor nephropathy Time spent for discharge: 34 minutes Core Measure Documentation - Palliative Care Palliative Care/ Comfort Measures: Not Applicable - Core Measures Any of the following diagnoses?: none Exam - Constitutional Vitals: Temp Pulse Resp BP Pulse Ox 98.8 F 76 18 135/88 97 11/11/20 15:40 11/11/20 15:40 11/11/20 15:40 11/11/20 15:40 11/11/20 15:40 Plan Activity: advance as tolerated Weight Bearing Status: Non-Weight Bearing Diet: advance as tolerated Follow up with: DEMETRA DIEGO DO [Staff Physician] - 14 Days PRIMARY CARE, [Primary Care Provider] - 3-5 Days Prescriptions: HYDROcodone/APAP 5-325 [Boswell 5-325 mg TAB] 1 each PO Q4H PRN #20 tablet PRN Reason: Pain, Moderate (4-6)
== END 2020-11-11 21:00 | disposition home or self-care (01) | DRG 335 ==
LOC: ED 11:42 → 4A 18:00 → OBSVTOIN 11-07 14:10 → 4A 11-08 00:31
PROVIDERS: ADMIT Internal Medicine; ATTEND Internal Medicine
PROC: 0DNU4ZZ Release Omentum, Percutaneous Endoscopic Approach (ICD-10-PCS; principal; 2020-11-08)
PROC: 0DN84ZZ Release Small Intestine, Percutaneous Endoscopic Approach (ICD-10-PCS; 2020-11-08)
DX: K56.50 Intestinal adhesions [bands], unspecified as to partial versus complete obstruction (principal); N17.0 Acute kidney failure with tubular necrosis; K46.0 Unspecified abdominal hernia with obstruction, without gangrene; I10 Essential (primary) hypertension; Z88.8 Allergy status to other drugs, medicaments and biological substances; F17.210 Nicotine dependence, cigarettes, uncomplicated
CPT/HCPCS: 36415; 74022; 74177; 80048; 80053; 82962; 83690; 85025; 85610; 86850; 86900; 86901; G0378; A4217; C9113; J0330; J0360; J0696; J1100; J1170; J1644; J1885; J2001; J2250; J2270; J2370; J2405; J2704; J2710; J3010; J3480; J3490; J7030; J7042; Q9967